=== PATIENT | female | born 1990 | race Caucasian/White ===

== ENCOUNTER → 2017-08-14 | Outpatient (CLI) | payer MEDICARE, OTHER ==
--- NOTE | 2017-08-14 17:07 | Diagnostic Imaging Report ---
EXAM: CT Chest WITHOUT contrast INDICATION: \[id number] \[id number] \S\ASTHMA / PNEUMONIA COMPARISON: None TECHNIQUE: Chest was scanned utilizing a multidetector helical scanner from the lung apex through the level of the adrenal glands without administration of IV contrast. Absence of intravenous contrast decreases sensitivity for detection of lymphadenopathy and vascular pathology. Coronal and sagittal reformations were obtained. Routine protocol was performed. IV CONTRAST: None COMPLICATIONS: None RADIATION DOSE: Total DLP: 506.56 mGy*cm Estimated effective dose: (DLP x 0.014 x size factor) mSv CTDIvol has been reviewed. It is below the limits set by the Radiation Protocol Committee (RPC). FINDINGS: LINES/ TUBES: None. LUNGS AND AIRWAYS: Lingular and to lesser extent medial right lower lobe (series 3, image 90) hazy opacities. There are bilateral additional small foci of subsegmental atelectasis. Airways are normal. PLEURA: The pleural spaces are clear. HEART AND MEDIASTINUM: The thyroid gland is normal. No mediastinal, hilar or axillary lymphadenopathy. Few scattered nonspecific mediastinal lymph nodes measuring up to 0.7 cm. Mild residual thymic tissue in the anterior mediastinum. The heart is normal in size.. Trace pericardial effusion versus thickening. UPPER ABDOMEN: Unremarkable. BONES: The visualized bony thorax is within normal limits. SOFT TISSUES: Unremarkable. IMPRESSION: Lingular and to lesser extent medial right lower lobe hazy opacities, representing atelectasis and/or pneumonia. Signed by: Dr. Choco Fisher MD on 08/14/2017 5:04 PM
== END ==
LOC: CT 15:31
PROVIDERS: ATTEND Internal Medicine Critical Care Medicine
DX: J30.9 Allergic rhinitis, unspecified (principal); J18.9 Pneumonia, unspecified organism; J45.909 Unspecified asthma, uncomplicated; G47.36 Sleep related hypoventilation in conditions classified elsewhere; E66.9 Obesity, unspecified; Z72.0 Tobacco use
CPT/HCPCS: 71250; 81025

== ENCOUNTER → 2017-08-28 | Outpatient (CLI) | payer MEDICARE, OTHER ==
--- NOTE | 2017-09-04 15:40 | Pulmonary Function Test ---
DATE OF STUDY: August 28, 2017 SPIROMETRY: Spirometry demonstrates evidence of very mild obstruction based on decreased of FEF 25-75% of 2.00 liters per second or 55% predicted and decreased FEV1/FVC ratio. FEV1 was 2.81 liters or 84% predicted and FVC was 3.96 liters or 101% predicted. After bronchodilator administration, there was a mild 10% FVC change, which was not statistically significant. Flow volume loop was unremarkable. LUNG VOLUMES: Lung volumes as performed by washout method demonstrate evidence of severe hyperinflation as noted by increased RV of 2.98 liters or 214% predicted. No evidence of restriction was present with normal PLCO of 6.68 liters or 126% predicted. DIFFUSION: Diffusion capacity was normal at 26.15 mL/mmHg per minute or 96% of predicted. SUMMARY: There is very mild obstruction with normal diffusion. This most often is seen in asthma. Additional severe hyperinflation noted. Job#: [id number] [facility]
== END ==
LOC: RESP 13:03
PROVIDERS: ATTEND Internal Medicine Critical Care Medicine
DX: J45.909 Unspecified asthma, uncomplicated (principal); J18.9 Pneumonia, unspecified organism
CPT/HCPCS: 94060; 94727; 94729

== ENCOUNTER → 2017-11-09 | Outpatient (CLI) | payer MEDICARE, OTHER ==
--- NOTE | 2017-11-09 13:39 | Diagnostic Imaging Report ---
PROCEDURE: CT CHEST WITHOUT CONTRAST CT scan of the chest WITHOUT intravenous contrast, using standard protocol. TECHNIQUE: The chest was scanned utilizing a multidetector helical scanner from the apex to the level of the adrenal glands. No IV contrast was administered as per physician request. Coronal and sagittal multiplanar reformations were obtained. COMPARISON: CT chest 08/14/2017. INDICATIONS: ALLERGIC RHINITIS, ASTHMA FINDINGS: Lines/tubes: None. Lungs and Airways: The lungs and airways are normal with no focal abnormality demonstrated. Stable atelectasis in the left lower lobe. Pleura: The pleural spaces are clear. Heart and mediastinum: The thyroid gland is normal. No significant mediastinal, hilar or axillary lymphadenopathy is seen. The heart and pericardium are within normal limits. Soft tissues: Normal. Abdomen: Limited views of the upper abdomen show no abnormality within the visualized liver, spleen, pancreas, or kidneys. The adrenal glands are normal. Bones: The visualized bony thorax is within normal limits. IMPRESSION: No acute abnormality of the chest. Dictated by: Mina Rodriges M.D. on 11/09/2017 at 13:40 Electronically approved by: Mina Rodriges M.D. on 11/09/2017 at 13:40
== END ==
LOC: CT 12:27
PROVIDERS: ATTEND Internal Medicine Critical Care Medicine
DX: J18.9 Pneumonia, unspecified organism (principal); J45.909 Unspecified asthma, uncomplicated; J30.9 Allergic rhinitis, unspecified; K21.9 Gastro-esophageal reflux disease without esophagitis; G47.36 Sleep related hypoventilation in conditions classified elsewhere; E66.9 Obesity, unspecified
CPT/HCPCS: 71250

== ENCOUNTER → 2018-04-26 | Outpatient (CLI) | payer OTHER ==
--- NOTE | 2018-04-26 16:15 | Consultation ---
DATE OF CONSULTATION: April 26, 2018 CARDIOLOGY CONSULTATION REQUESTING PHYSICIAN: Dr. Mejía REASON FOR CONSULTATION: Hypoxia. HISTORY OF PRESENT ILLNESS: This is a 27-year-old woman with a history of asthma, who presents with complaints of shortness of breath. She reports this has been longstanding with no recent change. She denies any chest pain, palpitations, edema, orthopnea, or PND. Exercise treadmill stress test was requested to further evaluate the patient's dyspnea. REVIEW OF SYSTEMS: Negative, except as per HPI. PAST MEDICAL HISTORY: Asthma. PAST SURGICAL HISTORY: Denied. ALLERGIES: NO KNOWN DRUG ALLERGIES. MEDICATIONS: Please see EMR. SOCIAL HISTORY: She reports she smoked 1 to 2 packs per day since the age of 18. No alcohol or drugs. FAMILY HISTORY: Noncontributory. PHYSICAL EXAMINATION VITALS: Reviewed. GENERAL: Obese woman in no acute distress. Awake and alert. HEENT: Normocephalic and atraumatic. Pupils are equal. No scleral icterus. NECK: Supple. No thyromegaly or cervical lymphadenopathy. No carotid bruit. LUNGS: Clear to auscultation bilaterally. No wheezes or crackles. CARDIOVASCULAR: Normal rate, regular rhythm. No murmur. Normal S1 and S2. ABDOMEN: Soft. Nontender. EXTREMITIES: No edema. NEURO: Nonfocal exam. IMPRESSION 1. Dyspnea. 2. Asthma. RECOMMENDATIONS: We will proceed with exercise treadmill stress test. Thank you. Job#: [id number]
--- NOTE | 2018-04-26 19:12 | Cardiology Report ---
DATE OF STUDY: April 26, 2018 EXERCISE NUCLEAR STRESS TEST PROCEDURE TITLE: Exercise treadmill stress test. INDICATIONS: Shortness of breath. PROCEDURE: The patient performed treadmill exercise using a Guillermo protocol, exercising for 4 minutes 10 seconds to stage 2 and completing estimated work load of 7 metabolic equivalents (METs). The test was terminated due to fatigue. The heart rate was 112 beats per minute at rest and increased to 184 beats per minute at peak exercise, 94% of the maximum predicted heart rate. The rest blood pressure was 129/88 mmHg and increased to 150/72 mmHg, which is a normal response. Patient did not develop any symptoms other than fatigue during the procedure. The resting electrocardiogram demonstrated normal sinus rhythm. There were no ST-segment changes consistent with myocardial ischemia. IMPRESSION: Normal echocardiogram and hemodynamically exercise treadmill stress test. Poor exercise tolerance. Job#: [id number] [facility]
== END ==
LOC: CARD 09:45
PROVIDERS: ATTEND Internal Medicine Critical Care Medicine
DX: J18.9 Pneumonia, unspecified organism (principal); J45.909 Unspecified asthma, uncomplicated; J30.9 Allergic rhinitis, unspecified; G47.36 Sleep related hypoventilation in conditions classified elsewhere; K21.9 Gastro-esophageal reflux disease without esophagitis; E66.9 Obesity, unspecified; Z72.0 Tobacco use
CPT/HCPCS: 93017; 93306; 94060; 94727; 94729